=== PATIENT | male | born 1970 | race African-American/Black ===

== ENCOUNTER 2016-11-09 11:42 | Emergency (ER) | payer SELFPAY ==
[~2016-11-09] VITALS: Ht 177.8 cm; Wt 85.0 kg
[2016-11-09] MEDS ORDERED: SODIUM CHLORIDE 0.9% 1,000 ML IV ONE (14:25)
[2016-11-09 15:08] LABS: BASOPHILS % 0.5 % (0.0-2.0); CHLORIDE 108 mEq/L (98-107); EOSINOPHILS % 0.2 % (0.0-5.0); HEMATOCRIT. 32.4 % (42.0-52.0); HEMOGLOBIN. 10.9 g/dL (14.0-18.0); MEAN CORPUSCULAR VOLUME 95.3 fL (80.0-94.0); MEAN PLATELET VOLUME 7.2 fl (7.4-10.4); MONOCYTES % 6.4 % (2.0-8.0); NEUTROPHILS % 55.9 % (40.0-76.0); PLATELET 318 x1000/uL (130-400); RED CELL DISTRIBUTION WIDTH 14.7 % (11.6-14.6)
[2016-11-09 15:15] LABS: CARBON DIOXIDE 22 mEq/L (21-32); ETHANOL BLOOD 164 mg/dL
[2016-11-09 15:31] LABS: CLARITY URINE CLEAR (CLEAR); COLOR URINE YELLOW (YELLOW); GLUCOSE URINE NEGATIVE (NEGATIVE); KETONES URINE TRACE (NEGATIVE); LEUKOCYTE ESTERASE URINE NEGATIVE (NEGATIVE); NITRITE URINE NEGATIVE (NEGATIVE); OCCULT BLOOD URINE NEGATIVE (NEGATIVE); PROTEIN URINE 1+ (NEGATIVE); SPECIFIC GRAVITY URINE 1.022 (1.005-1.030)
[2016-11-09 15:41] LABS: *AMPHETAMINES SCREEN URINE NEGATIVE (NEGATIVE); *BARBITURATES SCREEN URINE NEGATIVE (NEGATIVE); *BENZODIAZEPINES SCREEN URINE NEGATIVE (NEGATIVE); *COCAINE SCREEN URINE PRESUMTIVE POSITIVE (NEGATIVE); CANNABINOID URINE SCREEN NEGATIVE (NEGATIVE); METHADONE URINE SCREEN NEGATIVE (NEGATIVE); OPIATES URINE SCREEN PRESUMTIVE POSITIVE (NEGATIVE); PHENCYCLIDINE URINE SCREEN NEGATIVE (NEGATIVE)
[2016-11-09 16:44] VITALS: BP 124/80
[2016-11-09] MEDS ORDERED: DEXTROSE 50% WATER 50ML SYRINGE IV SCH (16:45)
== END 2016-11-09 17:18 | disposition home or self-care (01) ==
LOC: ER 11:51
DX: T40.5X1A Poisoning by cocaine, accidental (unintentional), initial encounter (principal); G93.40 Encephalopathy, unspecified; E16.2 Hypoglycemia, unspecified; F15.10 Other stimulant abuse, uncomplicated; F14.10 Cocaine abuse, uncomplicated
CPT/HCPCS: 36415; 70450; 80053; 80305; 81001; 82962; 85025; 96361; 96374; 99285; G0482; J7030

== ENCOUNTER 2017-01-21 11:49 | Emergency (ER) | payer MEDICAID, MEDICARE ==
[~2017-01-21] VITALS: Ht 179.1 cm; Wt 100.0 kg
[2017-01-21] MEDS ORDERED: DOXE10CA2 PO (12:03)
[2017-01-21] MEDS ORDERED: KETOROLAC 60MG/2ML VIAL IM ONE (19:15)
[2017-01-21] MEDS ORDERED: BACITRACIN ZINC OINT UDPKT TOP ONE (20:45)
[2017-01-21 22:32] VITALS: BP 124/75
== END 2017-01-21 22:58 | disposition home or self-care (01) ==
LOC: ER 11:49
DX: S92.401A Displaced unspecified fracture of right great toe, initial encounter for closed fracture (principal); S63.502A Unspecified sprain of left wrist, initial encounter; S93.402A Sprain of unspecified ligament of left ankle, initial encounter; W19.XXXA Unspecified fall, initial encounter; J45.909 Unspecified asthma, uncomplicated; F17.200 Nicotine dependence, unspecified, uncomplicated; F12.10 Cannabis abuse, uncomplicated; W45.8XXA Other foreign body or object entering through skin, initial encounter; Y93.02 Activity, running; Y92.89 Other specified places as the place of occurrence of the external cause; Y99.8 Other external cause status
CPT/HCPCS: 29125; 70450; 72125; 73110; 73610; 73630; 96372; 99284; J1885; Z7610